=== PATIENT | male | born 1960 | race Caucasian/White ===

== ENCOUNTER → 2019-02-27 | Outpatient (CLI) | payer BC ==
--- NOTE | 2019-02-27 15:12 | Diagnostic Imaging Report ---
Indication: Cough Technique: 2 views of the chest Comparison: None Findings: The heart is upper limits normal in size. There is some atelectasis at the left lung base. Lungs and pleural spaces are otherwise clear. Impression: No acute process
== END | disposition home or self-care (01) ==
LOC: RAD 12:25
DX: Z01.818 Encounter for other preprocedural examination (principal); Z01.812 Encounter for preprocedural laboratory examination
CPT/HCPCS: 71046

== ENCOUNTER 2019-06-21 13:17 | Outpatient (CLI) | payer BC ==
--- NOTE | 2019-06-21 13:37 | Diagnostic Imaging Report ---
Indication: Cough Technique: One view of the chest Comparison: 02/27/2019 Findings: There is minimal atelectasis or scarring at the left lung base. Lungs and pleural spaces are otherwise clear. The heart size is normal. No significant interim change Impression: No acute process
== END 2019-06-21 15:17 | disposition home or self-care (01) ==
LOC: RAD 13:17
DX: Z01.818 Encounter for other preprocedural examination (principal); Z01.812 Encounter for preprocedural laboratory examination; R05 Cough
CPT/HCPCS: 71046